=== PATIENT | female | born 1970 | race Caucasian/White ===

== ENCOUNTER 2017-04-28 06:33 | Day surgery (SDC) | payer OTHER ==
[~2017-04-28 06:33] MED LIST: TAMOXIFEN CITRA20 MG PO
== END 2017-04-28 15:50 | disposition home or self-care (01) ==
LOC: CIR.AMB 06:33
DX: N85.8 Other specified noninflammatory disorders of uterus (principal)

== ENCOUNTER 2017-05-21 17:48 | Inpatient (IN) | payer OTHER ==
[~2017-05-21] VITALS: Ht 154.9 cm; Wt 43.5 kg
[2017-05-24] MEDS ORDERED: FOSAMAX70 MG PO (10:21)
[2017-05-24] MEDS ORDERED: VITAMIN D400 UNI5 PO (10:22)
[2017-05-24] MEDS ORDERED: CALCIUM500 M1 PO (10:22)
== END 2017-05-28 12:09 | DRG 735 ==
LOC: OB/GYN 05-26 08:03 → O/R 05-26 08:03 → SURG 05-26 09:16 → EDSTATUS 05-26 17:46 → CIR.AMB 05-26 17:46 → SURG 05-26 17:47 → OB/GYN 05-26 18:02 → SURG 05-26 22:00 → OB/GYN 05-28 12:09
PROVIDERS: Obstetrics & Gynecology Gynecologic Oncology
PROC: 07TC4ZZ Resection of Pelvis Lymphatic, Percutaneous Endoscopic Approach (ICD-10-PCS; 2017-05-26)
PROC: 0UT74ZZ Resection of Bilateral Fallopian Tubes, Percutaneous Endoscopic Approach (ICD-10-PCS; 2017-05-26)
PROC: 0UT24ZZ Resection of Bilateral Ovaries, Percutaneous Endoscopic Approach (ICD-10-PCS; 2017-05-26)
PROC: 0UT94ZZ Resection of Uterus, Percutaneous Endoscopic Approach (ICD-10-PCS; principal; 2017-05-26 22:00)
DX: N85.01 Benign endometrial hyperplasia (principal); N83.12 Corpus luteum cyst of left ovary; N72 Inflammatory disease of cervix uteri; Z85.3 Personal history of malignant neoplasm of breast